=== PATIENT | female | born 1940 | race Caucasian/White ===

== ENCOUNTER 2017-12-18 09:33 | Observation (INO) | payer OTHER ==
[2017-12-18] MEDS: ASPIRIN 325 MG TAB PO (10:01)
[2017-12-18 10:20] LABS: ADD MAN DIFF? NO
[2017-12-18 10:22] LABS: BASOPHILS % 0.4 % (0.0-2.0); EOSINOPHILS # 0.2 10^3/ul (0.0-0.5); EOSINOPHILS % 3.4 % (0.0-7.0); HEMATOCRIT 39.4 % (37.0-47.0); HEMOGLOBIN 12.7 g/dl (12.0-16.0); LYMPHOCYTES # 1.7 10^3/ul (0.8-2.9); LYMPHOCYTES % 31.4 % (15.0-51.0); MEAN CORPUSCULAR HEMOGLOBIN 28.8 pg (29.0-33.0); MEAN CORPUSCULAR HGB CONC 32.2 g/dl (32.0-37.0); MEAN CORPUSCULAR VOLUME 89.3 fl (82.0-101.0); MEAN PLATELET VOLUME 11.4 fl (7.4-10.4); MONOCYTE # 0.3 10^3/ul (0.3-0.9); MONOCYTES % 5.9 % (0.0-11.0); NEUTROPHIL # 3.1 10^3/ul (1.6-7.5); NEUTROPHILS % 58.7 % (39.0-77.0); PLATELET COUNT 153 10^3/UL (140-415); RED BLOOD COUNT 4.41 10^6/ul (4.20-5.40); RED CELL DISTRIBUTION WIDTH 13.1 % (11.5-14.5)
[2017-12-18 10:22] LABS: WHITE BLOOD COUNT 5.3 10^3/ul (4.8-10.8)
[2017-12-18 10:39] LABS: ALANINE AMINOTRANSFERASE 22 IU/L (13-69); ALBUMIN 4.4 g/dl (3.3-4.9); ALBUMIN/GLOBULIN RATIO 1.57; ALKALINE PHOSPHATASE 56 IU/L (42-121); ANION GAP 17 (8-16); ASPARTATE AMINO TRANSFERASE 11 IU/L (15-46); BILIRUBIN,INDIRECT 0.6 mg/dl (0-1.1); BILIRUBIN,TOTAL 0.6 mg/dl (0.2-1.3); BLOOD UREA NITROGEN 18 mg/dl (7-20); CALCIUM 9.2 mg/dl (8.4-10.2); CARBON DIOXIDE 26 mmol/L (21-31); CHLORIDE 106 mmol/L (97-110); CREATININE 0.73 mg/dl (0.44-1.00); GLUCOSE 109 mg/dl (70-220); LIPASE 117 U/L (23-300); POTASSIUM 4.2 mmol/L (3.5-5.1); SODIUM 145 mmol/L (135-144); TOTAL PROTEIN 7.2 g/dl (6.1-8.1)
[2017-12-18 10:57] LABS: TROPONIN-I < 0.012 ng/ml (0.000-0.120)
[2017-12-18] MEDS ORDERED: NACL 0.9% 3 ML SYG IV (12:30)
[2017-12-18] MEDS ORDERED: ONDANSETRON 4 MG INJ IV (12:30)
[2017-12-18 12:55] LABS: HEMOGLOBIN A1C 5.8 % (0-5.9)
[2017-12-18 13:10] LABS: FREE T4 (FREE THYROXINE) 0.81 ng/dl (0.78-2.44)
[2017-12-18 16:53] LABS: CREATINE KINASE 56 IU/L (23-200)
[2017-12-18 17:05] LABS: CK INDEX 0.5; CK-MB 0.26 ng/ml (0.0-2.4)
[2017-12-18 17:06] LABS: TROPONIN-I < 0.012 ng/ml (0.000-0.120)
[2017-12-18] MEDS: SUCRALFATE 1 GM TAB PO ×2 (17:23→23:59)
[2017-12-18 21:58] LABS: CREATINE KINASE 56 IU/L (23-200)
[2017-12-18 22:10] LABS: CK INDEX 0.5; CK-MB 0.29 ng/ml (0.0-2.4)
[2017-12-18 22:14] LABS: TROPONIN-I < 0.012 ng/ml (0.000-0.120)
[2017-12-19] MEDS: PANTOPRAZOLE (EC) 40 MG TAB PO (05:16)
[2017-12-19] MEDS: SUCRALFATE 1 GM TAB PO ×3 (05:16→18:00)
[2017-12-19 06:13] LABS: ADD MAN DIFF? NO
[2017-12-19 06:25] LABS: WHITE BLOOD COUNT 4.3 10^3/ul (4.8-10.8)
[2017-12-19 06:25] LABS: BASOPHILS % 0.2 % (0.0-2.0); EOSINOPHILS # 0.2 10^3/ul (0.0-0.5); EOSINOPHILS % 4.1 % (0.0-7.0); HEMATOCRIT 38.9 % (37.0-47.0); HEMOGLOBIN 12.8 g/dl (12.0-16.0); LYMPHOCYTES # 1.6 10^3/ul (0.8-2.9); LYMPHOCYTES % 37.8 % (15.0-51.0); MEAN CORPUSCULAR HEMOGLOBIN 29.4 pg (29.0-33.0); MEAN CORPUSCULAR HGB CONC 32.9 g/dl (32.0-37.0); MEAN CORPUSCULAR VOLUME 89.4 fl (82.0-101.0); MEAN PLATELET VOLUME 11.9 fl (7.4-10.4); MONOCYTE # 0.3 10^3/ul (0.3-0.9); MONOCYTES % 7.4 % (0.0-11.0); NEUTROPHIL # 2.2 10^3/ul (1.6-7.5); NEUTROPHILS % 50.3 % (39.0-77.0); PLATELET COUNT 145 10^3/UL (140-415); RED BLOOD COUNT 4.35 10^6/ul (4.20-5.40); RED CELL DISTRIBUTION WIDTH 13.2 % (11.5-14.5)
[2017-12-19 06:46] LABS: ALANINE AMINOTRANSFERASE 20 IU/L (13-69); ALBUMIN 3.8 g/dl (3.3-4.9); ALBUMIN/GLOBULIN RATIO 1.46; ALKALINE PHOSPHATASE 49 IU/L (42-121); ANION GAP 16 (8-16); ASPARTATE AMINO TRANSFERASE 15 IU/L (15-46); BILIRUBIN,INDIRECT 0.6 mg/dl (0-1.1); BILIRUBIN,TOTAL 0.6 mg/dl (0.2-1.3); BLOOD UREA NITROGEN 15 mg/dl (7-20); CALCIUM 8.9 mg/dl (8.4-10.2); CARBON DIOXIDE 26 mmol/L (21-31); CHLORIDE 106 mmol/L (97-110); CREATININE 0.66 mg/dl (0.44-1.00); GLUCOSE 107 mg/dl (70-220); POTASSIUM 3.8 mmol/L (3.5-5.1); SODIUM 144 mmol/L (135-144); TOTAL PROTEIN 6.4 g/dl (6.1-8.1)
[2017-12-19 06:47] LABS: B-TYPE NATRIURETIC PEPTIDE 235 PG/ML (0-450)
[2017-12-19 06:47] LABS: CHOL/HDL RATIO 4.9 RATIO; CHOLESTEROL 143 mg/dl (100-200); HDL CHOLESTEROL 29 mg/dl (33-92); LDL CHOLESTEROL,CALCULATED 68 mg/dl; MAGNESIUM 2.1 mg/dl (1.7-2.5); TRIGLYCERIDES 228 mg/dl (0-149)
[2017-12-19 06:47] LABS: PHOSPHORUS 3.8 mg/dl (2.5-4.9)
[2017-12-19 06:59] LABS: TROPONIN-I < 0.012 ng/ml (0.000-0.120)
[2017-12-19] MEDS: HYDROCODONE/APAP (5/325) TAB PO (09:30)
[2017-12-19] MEDS: ASPIRIN (EC) 81 MG TAB PO (09:30)
[2017-12-19] MEDS: LORATADINE 10 MG TAB PO (09:30)
[2017-12-19] MEDS: LOSARTAN 50 MG TAB PO (09:31)
[2017-12-19] MEDS: BARIUM SULF 2% 450 ML BTL (BERRY SMOOTHIE) PO (09:32)
[2017-12-19] MEDS: ENOXAPARIN 40 MG/0.4 ML SYG SC (09:34)
[2017-12-19] MEDS: POLYETHYLENE GLYCOL 17 GM PACKET PO (18:00)
[2017-12-20] MEDS: PANTOPRAZOLE (EC) 40 MG TAB PO (05:17)
[2017-12-20] MEDS: SUCRALFATE 1 GM TAB PO ×4 (05:17→18:07)
[2017-12-20 05:51] LABS: ADD MAN DIFF? NO
[2017-12-20 05:55] LABS: WHITE BLOOD COUNT 4.5 10^3/ul (4.8-10.8)
[2017-12-20 05:55] LABS: BASOPHILS % 0.7 % (0.0-2.0); EOSINOPHILS # 0.2 10^3/ul (0.0-0.5); EOSINOPHILS % 3.5 % (0.0-7.0); HEMATOCRIT 37.2 % (37.0-47.0); HEMOGLOBIN 12.2 g/dl (12.0-16.0); LYMPHOCYTES # 1.8 10^3/ul (0.8-2.9); LYMPHOCYTES % 38.9 % (15.0-51.0); MEAN CORPUSCULAR HEMOGLOBIN 29.2 pg (29.0-33.0); MEAN CORPUSCULAR HGB CONC 32.8 g/dl (32.0-37.0); MEAN PLATELET VOLUME 11.8 fl (7.4-10.4); MONOCYTE # 0.4 10^3/ul (0.3-0.9); MONOCYTES % 8.6 % (0.0-11.0); NEUTROPHIL # 2.2 10^3/ul (1.6-7.5); NEUTROPHILS % 48.1 % (39.0-77.0); PLATELET COUNT 158 10^3/UL (140-415); RED BLOOD COUNT 4.18 10^6/ul (4.20-5.40); RED CELL DISTRIBUTION WIDTH 13.2 % (11.5-14.5)
[2017-12-20 06:19] LABS: ANION GAP 14 (8-16); BLOOD UREA NITROGEN 16 mg/dl (7-20); CARBON DIOXIDE 27 mmol/L (21-31); CHLORIDE 106 mmol/L (97-110); CREATININE 0.73 mg/dl (0.44-1.00); GLUCOSE 103 mg/dl (70-220); POTASSIUM 4.1 mmol/L (3.5-5.1); SODIUM 143 mmol/L (135-144)
[2017-12-20 06:32] LABS: PHOSPHORUS 3.9 mg/dl (2.5-4.9)
[2017-12-20 06:32] LABS: MAGNESIUM 2.3 mg/dl (1.7-2.5)
[2017-12-20] MEDS ORDERED: PROPOFOL 200 MG INJ (07:00)
[2017-12-20] MEDS: ENOXAPARIN 40 MG/0.4 ML SYG SC (09:00)
[2017-12-20] MEDS: POLYETHYLENE GLYCOL 17 GM PACKET PO (09:00)
[2017-12-20] MEDS: LOSARTAN 50 MG TAB PO (10:23)
[2017-12-20] MEDS: LORATADINE 10 MG TAB PO (10:23)
== END 2017-12-20 20:25 | disposition home or self-care (01) ==
LOC: MS1 12-20 02:55 → E/R 09:33 → MS3 15:16
DX: R07.89 Other chest pain (principal); K29.50 Unspecified chronic gastritis without bleeding; K21.9 Gastro-esophageal reflux disease without esophagitis; I10 Essential (primary) hypertension; E78.5 Hyperlipidemia, unspecified; E03.9 Hypothyroidism, unspecified; Z79.82 Long term (current) use of aspirin
CPT/HCPCS: 36415; 71045; 74176; 80048; 80053; 80061; 82550; 82553; 83036; 83690; 83735; 83880; 84100; 84439; 84443; 84484; 85025; 88305; 88312; 93005; 93306; 99285-25

== ENCOUNTER 2018-05-21 11:00 | Emergency (ER) | payer OTHER ==
[2018-05-21] MEDS: OXYMETAZOLINE 0.05% 15 ML NAS SPRAY NASAL (11:39)
[2018-05-21] MEDS: NICARDipine HCL 30 MG CAPSULE PO (11:45)
== END 2018-05-21 12:52 | disposition home or self-care (01) ==
LOC: FTE 11:00
DX: R04.0 Epistaxis (principal); I10 Essential (primary) hypertension
CPT/HCPCS: 99282; Z7610